=== PATIENT | male | born 1955 | race Caucasian/White ===

== ENCOUNTER 2017-01-28 00:46 | Emergency (ER) | payer SELFPAY ==
[2017-01-28 00:56] VITALS: BP 127/92; BMI 21.5
[2017-01-28] MEDS ORDERED: XYLOCAINE 1% and EPINEPHRINE 1:100,000 IM ONE (01:11)
[2017-01-28] MEDS ORDERED: NS IRRIGATION 1000 ML IR ONE (01:13)
[2017-01-28] MEDS ORDERED: BETADINE SOLN TOP ONE (01:14)
[2017-01-28] MEDS ORDERED: NS IRRIGATION 1000 ML 1,000 ML ONE (01:15)
--- NOTE | 2017-01-28 01:16 | DR.GENAD ---
HPI - PCP Primary Care Physician: NFD - Complaint/Symptoms Chief Complaint:: CUT HIS RIGHT HAND BETWEEN THUMB AND FINGER AN HOUR AGO - Nurses notes reviewed Nurses Notes Review: Yes - Source History Provided: Patient - Mode of Arrival Mode of Arrival: Ambulatory - Timing Onset of Chief Complaint: 01/27/17 Came on: Suddenly - Duration Duration: Constant How lon Duration: Hours - Location Location: left - Severity Severity: Moderate - Modifying Factors Worsens:: movement - Associated Signs and Symptoms Associated Signs and Symptoms: pain PMH - PMH Past Medical History: No Past Surgical History: No Surgical History: Unknown - Family History History of Family Medical Conditions: Yes Family Medical History: Heart Failure - Social History Does patient currently use any type of tobacco product: Yes Have you used tobacco products in the last 12 months: Yes Type of Tobacco Use: Cigarettes How many years tobacco product used: 47 Does any household member use tobacco: No Alcohol Use: Occasionally Do you use any recreational Drugs:: No Lives With: Alone Lives Where: Home - infectious screening In the last 2 months have you had wt loss of >10#?: NO Have you had fever, night sweats or hemotysis?: No Have you traveled outside the country in the last 6 months?: No Isolation: Standard ROS - Review of Systems Constitutional: No Symptoms Reported Eyes: No Symptoms Reported ENTM: No Symptoms Reported Respiratoy: No Symptoms Reported Cardiovascular: No Symptoms Reported Gastrointestinal/Abdominal: No Symptoms Reported Genitourinary: No Symptoms Reported Neurological: No Symptoms Reported Musculoskeletal: No Symptoms Reported Integumentary: Wound (left hand cut 2cm) Endocrine: No Symptoms Reported Psychiatric: No Symptoms Reported PE - Vital Signs Vitals: Temperature 98.2 F Pulse Rate 87 Respiratory Rate 20 Blood Pressure [Left Arm] 108/69 Blood Pressure [Right Arm] 104/55 Blood Pressure 127/92 O2 Sat by Pulse Oximetry 97 - General Limitations: No Limitations General Appearance: Alert, In No Apparent Distress - Head Head Exam: Normal Inspection - Eyes Eye exam: Normal Appearance, EOMI. negative: Scleral Icterus, Conjunctival Injection - ENT ENT Exam: Normal Oropharynx External Ear Exam: Normal External Inspection Mouth Exam: Normal Inspection - Neck Neck Exam: Normal Inspection, Full ROM, Trachea Midline - Chest Chest Inspection: Normal Inspection - Respiratory Respiratory Exam: Normal Lung Sounds Bilat. negative: Accessory Muscle Use, Respiratory Distress - Extremities Extremities Exam: Full ROM, Tenderness (left hand pain at cut on thumb). negative: Normal Inspection - Back Back Exam: Normal Inspection - Neurologic Neurological Exam: Alert, Oriented X3, CN II-XII Intact - Psychiatric Psychiatric Exam: Normal Mood - Skin Skin Exam: Normal Color. negative: Intact (2cm cut left medial thumb and base) Procedures - Laceration/Wound Repair Left Hand Wound Length (cm): 2 Wound's Depth, Shape: Linear Wound Explored: clean Betadine Prep?: Yes Anesthesia: 1% Lidocaine w/ Epi Volume Anesthetic (ccs): 4 Wound Repaired With: sutures Suture Size/Type: 4:0, [place] Number of Sutures: 6 Layer Closure?: No Sterile Dressing Applied?: Yes Splint Applied?: No - Diagnosis Discharge Problem: Laceration - Discharge Plan Condition: Stable Prescriptions: Cephalexin [KEFLEX CAP 500 MG *] 500 mg PO TID #21 cap - Follow ups/Referrals Follow ups/Referrals: NFD,None [Primary Care Provider] - 3 days - Instructions
[2017-01-28] MEDS ORDERED: XYLOCAINE 1% and EPINEPHRINE 1:100,000 ONE (01:17)
[2017-01-28] MEDS ORDERED: NEOSPORIN OINT TOP ONE (01:48)
[2017-01-28] MEDS ORDERED: NEOSPORIN OINT ONE (01:53)
== END 2017-01-28 02:05 | disposition home or self-care (01) ==
LOC: ER 00:46
PROC: 0XQK0ZZ Repair Left Hand, Open Approach (ICD-10-PCS; principal; 2017-01-28)
DX: S61.412A Laceration without foreign body of left hand, initial encounter (principal); W45.8XXA Other foreign body or object entering through skin, initial encounter; Y92.9 Unspecified place or not applicable
CPT/HCPCS: 99282; J2001